=== PATIENT | female | born 1955 | race African-American/Black ===

== ENCOUNTER 2016-04-27 17:42 | Emergency (ER) | payer SELFPAY ==
[~2016-04-27] VITALS: Ht 167.6 cm; Wt 103.0 kg
[~2016-04-27 17:42] MED LIST: DICY1TAB26 PO; ZOFR4TAB3 SL
[2016-04-27 17:44] VITALS: BP 140/83; PULSE 83; RESP 12; TEMP 98.4; O2SAT 93
[2016-04-28] MEDS ORDERED: VENTAER INH (17:41)
[2016-04-28] MEDS ORDERED: PRED10PA PO (17:41)
== END 2016-04-27 23:55 | disposition left against medical advice (07) ==
LOC: NED 17:42
DX: J98.9 Respiratory disorder, unspecified (principal)
CPT/HCPCS: 99281

== ENCOUNTER 2016-04-28 14:42 | Emergency (ER) | payer SELFPAY ==
[~2016-04-28] VITALS: Ht 167.6 cm; Wt 93.0 kg
[2016-04-28 14:51] VITALS: BP 141/91; PULSE 97; RESP 20; TEMP 98.5; O2SAT 93
--- NOTE | 2016-04-28 16:59 | RADHPO ---
EXAM DATE/TIME: 04/28/2016 16:12 [place] COMPARISON: No previous studies available for comparison. INDICATIONS : Short of breath and cough. MEDICAL HISTORY : None. SURGICAL HISTORY : None. ENCOUNTER: Initial ACUITY: 2 months PAIN SCORE: 0/10 LOCATION: Bilateral chest FINDINGS: PA and lateral views of the chest demonstrate the lungs to be symmetrically aerated without evidence of mass, infiltrate or effusion. The cardiomediastinal contours are unremarkable. Osseous structure s are intact. CONCLUSION: No acute disease. There is no evidence of pneumonia. Yassine Marsh MD on April 28, 2016 at 16:57 Board Certified Radiologist. This report was verified electronically.
--- NOTE | 2016-04-28 17:14 | PD ---
HPI Chief Complaint: Cold / Flu Symptoms Time Seen by Provider: 17:11 Travel History International Travel<30 days: No Contact w/Intl Traveler<30days: No Traveled to known affect area: No History of Present Illness HPI Patient comes in complaining of cough ongoing for approximately 2 months. Cough is worse at night. Patient has been using kmsa-kpy-eqymsod medication for symptomatic relief. Patient reports she is a former smoker of approximately 20 years. Patient denies any fevers with this. States that occasionally is productive with yellow or clear phlegm as well as some associated shortness of breath from time to time. Denies any fevers, chest pain , nausea, vomiting, abdominal pain, headache, numbness or tingling anywhere, or edema. PFSH Past Medical History Medical History: Denies Significant Hx Diminished Hearing: No Tubal Ligation: Yes Social History Alcohol Use: No Tobacco Use: No Substance Use: No Allergies-Medications (Allergen,Severity, Reaction): Coded Allergies: Tylenol (Verified Allergy, Severe, Swelling, 04/28/16) Reported Meds & Prescriptions Reported Meds & Active Scripts Active Prednisone (21) 10 mg tab Dose Pack (Prednisone) 10 Mg Pack 10 Mg PO DIRECTED Ventolin Hfa 18 GM Inh (Albuterol Sulfate) 90 Mcg/Act Aer 2 Puff INH Q4H PRN Review of Systems Except as stated in HPI: all other systems reviewed are Neg Physical Exam Narrative GENERAL: Well-developed, overly nourished, in no acute distress, and non-ill appearing. SKIN: Warm and dry. HEAD: Atraumatic. Normocephalic. EYES: Pupils equal and round. EOMI. No scleral icterus. No injection or drainage. ENT: No nasal bleeding or discharge. Mucous membranes pink and moist. NECK: Trachea midline. Supple. No nuclear rigidity. CARDIOVASCULAR: Regular rate and rhythm. No murmur appreciated. No pedal edema. RESPIRATORY: No accessory muscle use. No respiratory distress. Wheezing throughout. MUSCULOSKELETAL: No obvious deformities. No clubbing. No cyanosis. No edema. Full range of motion. NEUROLOGICAL: Awake and alert. No obvious cranial nerve deficits. Motor grossly within normal limits. Normal speech. PSYCHIATRIC: Appropriate mood and affect; insight and judgment normal. Data Data Last Documented VS Vital Signs Date Time Temp Pulse Resp B/P Pulse Ox O2 Delivery O2 Flow Rate FiO2 04/28/16 17:30 86 18 150/72 94 Room Air 04/28/16 14:51 98.5 Orders Chest, Pa & Lat (04/28/16 ) Albuterol-Ipratropium Neb (Duoneb Neb) (04/28/16 17:15) Prednisone (Deltasone) (04/28/16 17:15) Resp Mdi / Spacer Instruction (04/28/16 17:36) MDM Medical Decision Making Medical Screen Exam Complete: Yes Emergency Medical Condition: Yes Differential Diagnosis Pneumonia, emphysema, COPD, bronchitis, upper respiratory infection, other Narrative Course Patients symptom complex is consistent with bronchitis, possibly emphysema. The patient looks great and improved well with Nebulizer and steroid medication. The patient is moving air well and in no distress nor significant dyspnea, and oxygen saturation is within normal limits. Chest x-ray revealed no evidence of obvious consolidation or infiltrate. There is no clinical evidence to suggest pneumonia at this time. Diagnosis, plan of care and management were discussed with the patient who agreed with plan and feels better and ready to go home. The patient was instructed to follow up with their physician and instructed to return if worsens, progressively worsening shortness of breath or difficulty breathing, persistent fever, chest pains or discomfort, inability to keep medication or fluids down with or without vomiting, or as needed. Patient in no obvious distress upon re-evaluation. All pertinent Radiology result(s) discussed with patient. Discussed patient with Dr. Jurado, who saw and evaluated the patient and is in agreement with plan of care and disposition. Any questions/concerns in reference to patient diagnosis/condition discussed and clarified prior to patient's discharge. Reinforced sheer importance of close follow up with patient's primary physician or primary care clinic. Instructed patient to return to ED immediately, if symptoms return/worsen. Pt showed understanding of above instructions. Further instructions and recommendations were detailed in discharge paperwork. Pt ambulated without difficulty out of ED at discharge. Diagnosis Primary Impression: Bronchitis Patient Instructions: Acute Bronchitis (ED), Emphysema (ED), General Instructions Additional Instructions: Follow-up with your primary care physician next week for reevaluation. Take all medication as prescribed. Return to the emergency department if symptoms get worse. Med/Other Pt SpecificInfo: Prescription(s) given Scripts Prednisone (21) 10 mg tab Dose Pack 10 Mg Pack10 Mg PO DIRECTED #1 DSPK Ref 0 Prov:Gely Jurado MD 04/28/16 Albuterol 18 GM Inh (Ventolin Hfa 18 GM Inh)90 Mcg/Act Aer2 Puff INH Q4H PRN ( COUGH) #1 INHALER Ref 0 Prov:Gely Jurado MD 04/28/16 Disposition: 01 DISCHARGE HOME Condition: Stable Pee Alva Apr 28, 2016 17:14
[2016-04-28] MEDS ORDERED: predniSONE 20 MG TAB PO ONE (17:15)
[2016-04-28] MEDS: RESP: ALBUTEROL 2.5 MG/IPRATROPIUM 0.5 MG NEB (SCH) INH ×2 (17:16→17:20)
[2016-04-28 17:30] VITALS: BP 150/72; PULSE 86; RESP 18; O2SAT 94
[2016-04-28] MEDS ORDERED: PRED10PA PO (17:41)
[2016-04-28] MEDS ORDERED: VENTAER INH (17:41)
== END 2016-04-28 17:50 | disposition home or self-care (01) ==
LOC: PHED 14:42 → PHEFT 17:50
DX: J40 Bronchitis, not specified as acute or chronic (principal); Z87.891 Personal history of nicotine dependence
CPT/HCPCS: 71020; 94640; 94664; 99283; J7512